=== PATIENT | male | born 1950 | race Caucasian/White ===

== ENCOUNTER 2017-01-20 10:10 | Inpatient (IN) | payer MEDICARE ==
[~2017-01-20] VITALS: Ht 190.5 cm; Wt 120.8 kg
[2017-03-11] VITALS (12 sets, daily range): BP systolic 131–180; BP diastolic 64–83; PULSE 67–94; TEMP 97.6–98
[2017-03-11] MEDS ORDERED: HYZAAR 12.5 MG-1 TAB PO (02:34)
[2017-03-11] MEDS ORDERED: PLAVIX 75MG TAB75 MG PO (02:35)
[2017-03-11] MEDS ORDERED: LOPRESSOR 550 MG/TAB PO (02:36)
[2017-03-11] MEDS ORDERED: EFFEXOR XR75 MG/CAP PO (02:36)
[2017-03-11] MEDS ORDERED: CRESTOR20 MG PO (02:37)
[2017-03-11] MEDS ORDERED: ASPIRIN 32325 MG/TAB PO (02:38)
[2017-03-11] MEDS ORDERED: KLOR-CON 88 ME1 PO (02:40)
[2017-03-11] MEDS ORDERED: NORVASC 5MG5 MG/TAB PO (02:40)
[2017-03-11] MEDS ORDERED: FOLIC ACID0.4 MG PO (05:38)
[2017-03-11] MEDS ORDERED: FERROUS SU325 MG/TAB PO (05:38)
[2017-03-11] MEDS ORDERED: VITAMINC500CH PO (05:39)
[2017-03-12 00:41] VITALS: BP 136/72; PULSE 83; TEMP 98.3
[2017-03-12 04:13] VITALS: BP 150/72; PULSE 85; TEMP 98.4
[2017-03-12 06:17] LABS: HEMOGLOBIN 12.3 g/dl (13.5-18.0)
[2017-03-12 06:19] LABS: HEMATOCRIT 36.2 % (42.0-52.0)
[2017-03-12 08:26] VITALS: BP 148/60; PULSE 84; TEMP 98.3
[2017-03-12 11:50] VITALS: BP 165/88; PULSE 82; TEMP 97.9
== END 2017-03-12 14:00 | disposition home or self-care (01) | DRG 470 ==
LOC: JCC 03-11 05:06
PROVIDERS: Orthopaedic Surgery
PROC: 0SRC0J9 Replacement of Right Knee Joint with Synthetic Substitute, Cemented, Open Approach (ICD-10-PCS; principal; 2017-03-11 07:30)
DX: M17.11 Unilateral primary osteoarthritis, right knee (principal); I10 Essential (primary) hypertension; I25.10 Atherosclerotic heart disease of native coronary artery without angina pectoris; Z95.1 Presence of aortocoronary bypass graft; Z87.891 Personal history of nicotine dependence
CPT/HCPCS: A9284; C1713; C1776; J0690; J1100; J1885; J2250; J2274; J2405; J2704; J3010; J7120

== ENCOUNTER → 2017-05-21 | Outpatient (CLI) | payer MEDICARE, OTHER ==
[~2017-05-21] MED LIST: ASPIRIN 32325 MG/TAB PO; CRESTOR20 MG PO; EFFEXOR XR75 MG/CAP PO; FERROUS SU325 MG/TAB PO; FOLIC ACID0.4 MG PO; HYZAAR 12.5 MG-1 TAB PO; KLOR-CON 88 ME1 PO; LOPRESSOR 550 MG/TAB PO; NORVASC 5MG5 MG/TAB PO; PLAVIX 75MG TAB75 MG PO; VITAMINC500CH PO
[2017-05-21 10:54] LABS: BASO # 0.1 (0.0-0.2); EOS # 0.3 (0.0-0.7); EOS % 3.6 % (0-4.0); GRAN % 54.4 % (42.2-75.2); HEMATOCRIT 41.5 % (42.0-52.0); HEMOGLOBIN 14.2 g/dl (13.5-18.0); LYMPH # 2.4 (1.2-3.4); LYMPH % 32.5 % (20.0-51.0); MEAN CELL VOLUME 84 fl (80.0-100.0); MEAN CORPUSCULAR HEMOGLOBIN 29 pg (27.0-31.0); MEAN CORPUSCULAR HGB CONC 34 g/dl (33.0-37.0); MEAN PLATELET VOLUME 10.3 fl (7.4-10.4); MONO # 0.6 (0.1-0.6); MONO % 8.2 % (1.7-9.3); PLATELET COUNT 206 K/mm3 (130-400); RED BLOOD COUNT 4.95 M/mm3 (4.20-5.60); WHITE BLOOD COUNT 7.3 K/mm3 (4.8-10.8)
[2017-05-21 10:59] LABS: PROTHROMBIN TIME 11.5 SECONDS (9.7-12.8)
[2017-05-21 11:02] LABS: ADJUSTED CALCIUM 9.1 mg/dL (8.4-10.2); ALBUMIN 4.2 gm/dL (3.5-5.0); BILIRUBIN,TOTAL 0.9 mg/dL (0.0-1.0); CALCIUM 9.3 mg/dL (8.4-10.2); CREATININE, serum 1.24 mg/dL (0.66-1.25); POTASSIUM 3.6 mmol/L (3.4-5.0); TOTAL PROTEIN 7.4 gm/dL (6.4-8.2)
[2017-05-21 11:11] LABS: MUCOUS Present /lpf; PH 5 (5-8); SQUAMOUS EPITHELIAL 0-2 /hpf; URINE APPEARANCE Hazy; URINE BACTERIA None Seen /hpf; URINE BILIRUBIN Negative (NEGATIVE); URINE BLOOD Negative (NEGATIVE); URINE COLOR Yellow; URINE GLUCOSE Negative (NEGATIVE); URINE KETONE Negative (NEGATIVE); URINE LEUKOCYTE ESTERASE Negative (NEGATIVE); URINE PROTEIN(semi-quant) Negative (NEGATIVE); URINE RBC 0-2 /hpf; URINE WBC 0-2 /hpf
[2017-05-21 11:17] LABS: COLLECTION METHOD CLEAN CATCH
== END ==
LOC: COL.LAB 10:14
PROVIDERS: Orthopaedic Surgery
DX: Z01.812 Encounter for preprocedural laboratory examination (principal); Z79.01 Long term (current) use of anticoagulants